=== PATIENT | male | born 1955 | race Caucasian/White ===

== ENCOUNTER → 2017-07-07 | Outpatient (CLI) | payer OTHER ==
--- NOTE | 2017-07-08 08:59 | PCVCIMAG ---
APPROVED REPORT Study performed: 07/07/2017 09:28:15 EXAM: Comprehensive 2D, Doppler, and color-flow Echocardiogram Patient Location: Echo lab Status: routine BSA: 2.02 HR: 49 bpmBP: 128/80 mmHg Rhythm: NSR Other Information Study Quality: Good Indications Mitral Valve Prolapse, Mitral regurgitation. Hypertension, Bradycardia. 2D Dimensions IVSd: 7.62 (7-11mm)LVOT Diam: 19.10 (18-24mm) LVDd: 54.35 mm PWd: 8.00 (7-11mm)Ascending Ao: 34.66 (22-36mm) LVDs: 40.18 (25-40mm) Left Atrium: 43.08 (27-40mm) Aortic Root: 29.18 mm Garcia's LVEF: 50.67 % Volumes Left Atrial Volume (Systole) Single Plane 4CH: 52.76 mLSingle Plane 2CH: 60.80 mL LA ESV Index: 29.00 mL/m2 Aortic Valve AoV Peak Evaristo.: 1.49 m/s AO Peak Gr.: 8.89 mmHgLVOT Max P.80 mmHg LVOT Max V: 1.40 m/s FERNIE Vmax: 2.68 cm2 Mitral Valve E/A Ratio: 0.6 MV Decel. Time: 423.09 ms MV E Max Evaristo.: 0.51 m/s MV A Evaristo.: 0.79 m/s IVRT: 41.52 ms Pulmonary Valve PV Peak Gr.: 1.84 mmHg Pulmonary Vein P Vein S: 0.65 m/sP Vein A: 0.28 m/s P Vein D: 0.58 m/sP Vein A Dur.: 65.7 msec P Vein S/D Ratio: 1.12 Tricuspid Valve TR Peak Evaristo.: 2.22 m/s TR Peak Gr.: 19.79 mmHg Left Ventricle The left ventricle is normal size. There is normal LV segmental wall motion. There is normal left ventricular wall thickness. Left ventricular systolic function is normal. The left ventricular ejection fraction is within the normal range. LVEF is 55-60%. Grade I - abnormal relaxation pattern. Right Ventricle The right ventricle is normal size. The right ventricular systolic function is normal. Atria The left atrium size is normal. The right atrium size is normal. Aortic Valve The aortic valve is normal in structure. No aortic regurgitation is present. There is no aortic valvular stenosis. Mitral Valve Mitral Valve Prolapse. Mild to moderate mitral regurgitation. No evidence of mitral valve stenosis. Tricuspid Valve The tricuspid valve is normal in structure. Trace tricuspid regurgitation. Pulmonary Artery Pressure is 27mmhg. Pulmonic Valve The pulmonary valve is normal in structure. Mild pulmonic regurgitation. Great Vessels The aortic root is normal in size. IVC is normal in size and collapses with >50% inspiration Pericardium There is no pericardial effusion. <Conclusion> The left ventricle is normal size. Left ventricular systolic function is normal. The right ventricle is normal size. The left atrium size is normal. The aortic valve is normal in structure. Mitral Valve Prolapse. Mild to moderate mitral regurgitation. Trace tricuspid regurgitation. Pulmonary Artery Pressure is 27mmhg.
== END | disposition home or self-care (01) ==
LOC: PCVCIMAG 09:25
PROVIDERS: ATTEND Internal Medicine Cardiovascular Disease
DX: I08.1 Rheumatic disorders of both mitral and tricuspid valves (principal); I10 Essential (primary) hypertension
CPT/HCPCS: 93306

== ENCOUNTER → 2018-07-21 | Outpatient (CLI) | payer OTHER ==
--- NOTE | 2018-07-21 15:26 | PCVCIMAG ---
APPROVED REPORT Study performed: 07/21/2018 13:19:29 Exam: Stress Echocardiogram Indication: mitral regurgitation, HTN, bradycardia, mitral valve prolapse Patient Location: Echo lab Stress Nurse: Lexii Timmons RN Status: routine Ht: 5 ft 11 in HR: 78 bpm BP: 130/82 mmHg Rhythm: Bradycardia Procedure The patient underwent an Exercise Stress Test using the Bo Protocol. Blood pressure, heart rate, and EKG were monitored. An Echocardiogram was performed by telecommunications field technician in four stages in quad fashion. At peak stress, four selected images were obtained and placed side by side with resting images for comparison. Stress Test Details Stress Test: Exercise stress testing was performed using a Bo protocol. HR Resting HR: 78 bpmMax Heart Rate (APMHR): 158 bpm Max HR Achieved: 148 bpmTarget HR (85% APMHR): 134 bpm % of APMHR: 93 Recovery HR: 90 bpm HR response to stress: Normal HR response to stress BP Resting BP: 130/82 mmHg Max BP: 174/86 mmHg Recovery BP: 144/86 mmHg ECG Resting ECG: Sinus Bradycardia Stress ECG: Sinus Rhythm ST Change: Non-ischemic Arrhythmia: frequent isolated and couplet PVCs Recovery ECG: Sinus Rhythm Recovery ST Change: Normal Recovery Arrhythmia: PVCs Clinical Reason for Termination: Maximal effort Exercise duration: 13 min 17 sec Highest Stage Achieved: Stage 4: 4.2 mph at 16% grade. Exercise capacity: 17.5 METs Overall Exercise Capacity for Age: Excellent Scale: Active Angina Score: None Pre-Stress Echo The resting Echocardiogram showed normal left ventricular contractility with an estimated Ejection Fraction of about >55%. Normal wall motion in all segments on baseline images. Post-Stress Echo The stress Echocardiogram showed normal left ventricular contractility with an estimated Ejection Fraction of about 65%. Normal augmentation of wall motion in all segments on post stress images. Clinical No clinical or ECG evidence for ischemia. Conclusion Clinical Response: Non-ischemic Exercise Capacity: Superior Stress ECG Response: Non-ischemic Stress Echo Images: Non-ischemic Anterior mitral valve prolapse with mild posterior jet of mitral regurgitation. The left ventricle is normal in size and wall thickness in both the rest and stress images. Other Information Study Quality: Adequate <Conclusion> Anterior mitral valve prolapse with mild posterior jet of mitral regurgitation. The left ventricle is normal in size and wall thickness in both the rest and stress images.
== END | disposition home or self-care (01) ==
LOC: PCVCIMAG 16:36
PROVIDERS: ATTEND Internal Medicine Cardiovascular Disease
DX: I05.1 Rheumatic mitral insufficiency (principal); R00.1 Bradycardia, unspecified; I10 Essential (primary) hypertension
CPT/HCPCS: 93325; 93351

== ENCOUNTER → 2019-07-27 | Outpatient (CLI) | payer OTHER ==
--- NOTE | 2019-07-27 10:05 | PCVCIMAG ---
APPROVED REPORT Study performed: 07/27/2019 09:16:16 EXAM: Comprehensive 2D, Doppler, and color-flow Echocardiogram Patient Location: Echo lab Room #: [id number]: routine BSA: 2.01 HR: 48 bpmBP: 120/78 mmHg Rhythm: Bradycardia Other Information Study Quality: Good Risk Factors: Cardiac Risk Factors: HTN Indications Mitral Valve Disease Mitral Valve Prolapse Hypertension/HDD 2D Dimensions IVSd: 8.10 (7-11mm)LVOT Diam: 23.18 (18-24mm) LVDd: 54.78 mm PWd: 8.50 (7-11mm)Ascending Ao: 33.21 (22-36mm) LVDs: 33.32 (25-40mm) Left Atrium: 40.66 (27-40mm) Aortic Root: 29.60 mm LV Single Plane 4CH: 51.86 % LV Single Plane 2CH: 65.17 % Biplane EF: 59.3 % Volumes Left Atrial Volume (Systole) Single Plane 4CH: 68.10 mLSingle Plane 2CH: 76.21 mL Biplane LA Volume: 72.00 mLLA ESV Index: 36.00 mL/m2 Aortic Valve AoV Peak Evaristo.: 1.52 m/s AO Peak Gr.: 9.20 mmHgLVOT Max P.80 mmHg LVOT Max V: 0.83 m/s FERNIE Vmax: 2.31 cm2 Mitral Valve E/A Ratio: 0.7 MV Decel. Time: 114.86 ms MV E Max Evaristo.: 0.58 m/s MV A Evaristo.: 0.81 m/s IVRT: 100.35 ms TDI E/Lateral E': 7.25E/Medial E': 4.83 Medial E' Evaristo.: 0.12 m/s Lateral E' Evaristo.: 0.08 m/s Pulmonary Valve PV Peak Evaristo.: 0.92 m/sPV Peak Gr.: 3.40 mmHg Pulmonary Vein P Vein S: 0.56 m/sP Vein A: 0.36 m/s P Vein D: 0.41 m/sP Vein A Dur.: 110.7 msec P Vein S/D Ratio: 1.37 Tricuspid Valve TR Peak Evaristo.: 1.59 m/s TR Peak Gr.: 10.06 mmHg TV Vmax: 0.53 m/sPA Pressure: 17.00 mmHg Left Ventricle The left ventricle is normal size. There is normal LV segmental wall motion. There is normal left ventricular wall thickness. Left ventricular systolic function is normal. The left ventricular ejection fraction is within the normal range. LVEF is 55-60%. Grade I - abnormal relaxation pattern. Right Ventricle The right ventricle is normal size. The right ventricular systolic function is normal. Atria Left atrium is mildly dilated. The interatrial septum is intact with no evidence for an atrial septal defect. The right atrium size is normal. Aortic Valve Aortic valve is trileaflet. Minimal aortic valve sclerosis. No aortic regurgitation is present. There is no aortic valvular stenosis. 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 Normal leaflet excursion is seen Mild to moderate mitral regurgitation. No evidence of mitral valve stenosis. Moderate prolapse of the anterior mitral valve leaflet. Tricuspid Valve The tricuspid valve is normal in structure. Trace tricuspid regurgitation. Pulmonic Valve The pulmonary valve is normal in structure. There is no pulmonic valvular regurgitation. Great Vessels The aortic root is normal in size. The ascending aorta is normal in size. Aortic arch is normal in caliber. IVC is normal in size and collapses >50% with inspiration. Pericardium There is no pericardial effusion. There is no pleural effusion. <Conclusion> The left ventricle is normal size. There is normal left ventricular wall thickness. Left ventricular systolic function is normal. The right ventricle is normal size. Left atrium is mildly dilated. Minimal aortic valve sclerosis. Moderate prolapse of the anterior mitral valve leaflet. Mild to moderate mitral regurgitation. Trace tricuspid regurgitation.
== END | disposition home or self-care (01) ==
LOC: PCVCIMAG 08:53
PROVIDERS: ATTEND Internal Medicine Cardiovascular Disease
DX: I08.0 Rheumatic disorders of both mitral and aortic valves (principal); I10 Essential (primary) hypertension; Z88.2 Allergy status to sulfonamides
CPT/HCPCS: 93306